=== PATIENT | male | born 1980 | race Caucasian/White ===

== ENCOUNTER 2023-01-18 12:02 | Emergency (ER) | payer MEDICAID ==
[~2023-01-18] VITALS: Ht 175.3 cm; Wt 79.5 kg
[2023-01-18 12:41] LABS: COVID AG,FIA SOURCE NASAL SWAB
[2023-01-18 12:58] LABS: RAPID GROUP A STREP NEGATIVE (NEGATIVE)
[2023-01-18 13:00] LABS: INFLUENZA TYPE A NEGATIVE FOR TYPE A (NEGATIVE); INFLUENZA TYPE B NEGATIVE FOR TYPE B (NEGATIVE)
[2023-01-18 13:23] VITALS: BP 137/86
== END 2023-01-18 14:00 | disposition home or self-care (01) ==
LOC: EMS 12:04
DX: J06.9 Acute upper respiratory infection, unspecified (principal); F17.210 Nicotine dependence, cigarettes, uncomplicated; F12.90 Cannabis use, unspecified, uncomplicated; F41.9 Anxiety disorder, unspecified; Z98.890 Other specified postprocedural states
CPT/HCPCS: 87430; 87804; 99283